=== PATIENT | female | born 1995 | race African-American/Black ===

== ENCOUNTER 2021-02-15 12:43 | Emergency (ER) | payer MEDICAID ==
[~2021-02-15] VITALS: Ht 165.1 cm; Wt 66.0 kg
[2021-02-15] MEDS ORDERED: BACITRACIN ZINC OINT UDPKT TOP ONE (13:15)
[2021-02-15] MEDS ORDERED: ACETAMINOPHEN WITH CODEINE 300/30MG TABLET PO ONE (13:15)
[2021-02-15] MEDS ORDERED: BO1 TP (14:38)
[2021-02-15 14:50] VITALS: BP 118/70
== END 2021-02-15 14:50 | disposition home or self-care (01) ==
LOC: ER 12:43
DX: S80.212A Abrasion, left knee, initial encounter (principal); S80.211A Abrasion, right knee, initial encounter; W18.30XA Fall on same level, unspecified, initial encounter; Y93.89 Activity, other specified; Y92.89 Other specified places as the place of occurrence of the external cause; Y99.8 Other external cause status
CPT/HCPCS: 73562; 81025; 99284